=== PATIENT | female | born 1935 | race Caucasian/White ===

== ENCOUNTER → 2017-04-27 | Outpatient (CLI) | payer MEDICARE, OTHER ==
[~2017-04-27] MED LIST: CATHETER FLUSH 10 ML SYR IV PRN; CEFU500T PO; IOHEXOL 350 MG/ML 100 ML (OMNIPAQUE 350) VIAL IV ONE; NS 100 ML (IVPB) BAG IV ONE
[2017-04-27 11:26] LABS: CREATININE SERUM 1.09 MG/DL (0.60-1.30)
--- NOTE | 2017-04-27 12:06 | Diagnostic Imaging Report ---
PROCEDURE: CT chest with contrast only. TECHNIQUE: Multiple contiguous axial images were obtained through the chest after administration of intravenous contrast. INDICATION: Followup of bilateral pulmonary nodules. Comparison with 07/04/2016. FINDINGS: There is good opacification of the aorta and pulmonary arteries following IV contrast injection. Lungs well-aerated. There are small scattered sub-5 mm pulmonary nodules in the left lung which are stable. There is 5 mm nodule anteriorly in the right upper lobe which is also stable. No new nodules have developed. No infiltrates have developed. There is bilateral apical pleural scarring which is stable. Aorta is atherosclerotic without evidence of aneurysm. Pulmonary arteries appear normal. No mediastinal or hilar adenopathy is developed. There is no pleural effusion. The adrenal glands are not enlarged. No blastic or lytic bony lesions demonstrated. IMPRESSION: 1. Stable bilateral pulmonary nodules measuring 5 mm and smaller. 2. Stable bilateral apical pleural scarring. Dictated by: Dictated on workstation # [id number]
== END ==
LOC: RAD 10:43
PROVIDERS: ATTEND Internal Medicine
DX: R91.8 Other nonspecific abnormal finding of lung field (principal)
CPT/HCPCS: 36415; 71260; 82565; 84520

== ENCOUNTER → 2017-05-07 | Outpatient (CLI) | payer MEDICARE, OTHER ==
[~2017-05-07] MED LIST changes: -CATHETER FLUSH 10 ML SYR IV PRN; -IOHEXOL 350 MG/ML 100 ML (OMNIPAQUE 350) VIAL IV ONE; -NS 100 ML (IVPB) BAG IV ONE; +RT-ALBUTEROL SULF 2.5 MG/3 ML PRE-MIX VIAL IH ONE
== END ==
LOC: RT 14:59
PROVIDERS: ATTEND Internal Medicine
DX: R05 Cough (principal); F17.210 Nicotine dependence, cigarettes, uncomplicated
CPT/HCPCS: 94060; 94640; 94726; 94729

== ENCOUNTER → 2017-08-15 | Outpatient (CLI) | payer MEDICARE, OTHER ==
[~2017-08-15] MED LIST changes: -RT-ALBUTEROL SULF 2.5 MG/3 ML PRE-MIX VIAL IH ONE
--- NOTE | 2017-08-16 18:55 | Diagnostic Imaging Report ---
Bilateral screening mammogram 2D views with tomosynthesis The current study was also evaluated with a Computer Aided Detection (CAD) system. Indication: Screening. No current complaints stated on the questionnaire. COMPARISON: 08/14/2016 FINDINGS: The breasts are composed of scattered fibronodular densities. Occasional benign-appearing calcifications are seen. Allowing for technique and positional differences, no suspicious change is seen. IMPRESSION: No significant change. ACR BI-RADS Category 2: Benign findings. Result letter will be mailed to the patient. Note: At least 10% of breast cancer is not imaged by mammography. Dictated by: Dictated on workstation # [id number]
== END ==
LOC: RAD 09:51
PROVIDERS: ATTEND Internal Medicine
DX: Z12.31 Encounter for screening mammogram for malignant neoplasm of breast (principal)
CPT/HCPCS: 77067

== ENCOUNTER → 2018-05-16 | Outpatient (CLI) | payer MEDICARE, OTHER ==
--- NOTE | 2018-05-16 11:43 | Diagnostic Imaging Report ---
Indication: Age-related osteoporosis. Comparison is made with prior DEXA study from 02/21/2010. Bone mineral analysis of the lumbar spine and both hips was performed. Bone mineral density of the lumbar spine L2-L4 is 1.199 with a T score of 0.0. This compares with 1.029 and -1.3. Bone mineral density left femoral neck is 0.985 with T score -0.4. This compares with 0.82 and -1.1. Bone mineral density right femoral neck is 1.015 with T score -0.2. This compares to 0.928 and -0.8. Impression: Normal bone mineral density of the lumbar spine and bilateral femoral necks. Dictated by: Dictated on workstation # [id number]
== END ==
LOC: RAD 09:53
PROVIDERS: ATTEND Internal Medicine
DX: Z13.820 Encounter for screening for osteoporosis (principal); M81.0 Age-related osteoporosis without current pathological fracture
CPT/HCPCS: 77080

== ENCOUNTER → 2018-05-31 | Outpatient (CLI) | payer MEDICARE ==
--- NOTE | 2018-05-31 15:01 | Diagnostic Imaging Report ---
PROCEDURE: US Renal Bilateral. TECHNIQUE: Multiple real-time grayscale images were obtained over the kidneys in various projections bilaterally. INDICATION: Chronic kidney disease. FINDINGS: Right kidney measures 8.5 x 3.0 x 3.8 cm and the left kidney measures 9.0 x 3.5 x 3.7 cm. Cortical thickness and echogenicity is normal bilaterally. No calculi or hydronephrosis is seen. Urinary bladder is unremarkable although the bladder jets are not visualized. IMPRESSION: Unremarkable renal ultrasound. Dictated by: Dictated on workstation # [id number]
== END ==
LOC: RAD 14:03
PROVIDERS: ATTEND Internal Medicine
DX: N18.3 Chronic kidney disease, stage 3 (moderate) (principal)
CPT/HCPCS: 76770

== ENCOUNTER → 2018-08-19 | Outpatient (CLI) | payer MEDICARE ==
--- NOTE | 2018-08-19 10:54 | Diagnostic Imaging Report ---
INDICATION: Routine screening. Comparison is made with prior mammogram from 08/15/2017 and 08/14/2016. 2-D and 3-D bilateral screening mammography was performed with CAD. Both breasts are heterogeneously dense, limiting the sensitivity of mammography. Scattered benign-appearing parenchymal and vascular calcifications are seen bilaterally. No mass or malignant appearing microcalcifications are seen. The axilla are unremarkable. IMPRESSION: BI-RADS category 2 No mammographic features suspicious for malignancy are identified. ACR BI-RADS Category 2: Benign findings. Result letter will be mailed to the patient. Note: At least 10% of breast cancer is not imaged by mammography. Dictated by: Dictated on workstation # [id number]
== END ==
LOC: RAD 07:51
PROVIDERS: ATTEND Internal Medicine
DX: Z12.31 Encounter for screening mammogram for malignant neoplasm of breast (principal)
CPT/HCPCS: 77067

== ENCOUNTER → 2019-08-25 | Outpatient (CLI) | payer MEDICARE ==
--- NOTE | 2019-08-26 09:45 | Diagnostic Imaging Report ---
INDICATION: Routine screening. COMPARISON: 08/19/2018 and 08/15/2017. TECHNIQUE: 2D and 3D bilateral screening mammography was performed with CAD. FINDINGS: Both breasts remain heterogeneously dense, limiting the sensitivity of mammography. There are benign calcifications bilaterally. The overall parenchymal pattern appears to be stable. No mass or malignant appearing microcalcifications are seen. The axillae are unremarkable. IMPRESSION: No mammographic features suspicious for malignancy are identified. ACR BI-RADS Category 2: Benign findings. Result letter will be mailed to the patient. Note: At least 10% of breast cancer is not imaged by mammography. Dictated by: Dictated on workstation # [id number]
== END ==
LOC: RAD 15:28
PROVIDERS: ATTEND Nurse Practitioner Family
DX: Z12.31 Encounter for screening mammogram for malignant neoplasm of breast (principal)
CPT/HCPCS: 77067

== ENCOUNTER → 2020-01-29 | Outpatient (CLI) | payer MEDICARE ==
--- NOTE | 2020-01-29 13:06 | Diagnostic Imaging Report ---
INDICATION: Shortness of air COMPARISON: 06/08/2016 FINDINGS: Frontal and lateral radiograph views of the chest were obtained and show normal cardiac silhouette and pulmonary vasculature. Lungs show significant hyperinflation with flattening of the hemidiaphragms. Otherwise, lungs are clear. There is no focal consolidation, large effusion, nor pneumothorax. Osseous structures show no gross acute abnormalities. IMPRESSION: 1. No acute cardiopulmonary process. 2. Background COPD changes. Dictated by: Dictated on workstation # [id number]
== END ==
LOC: RAD 11:26
PROVIDERS: ATTEND Nurse Practitioner Family
DX: J44.9 Chronic obstructive pulmonary disease, unspecified (principal)
CPT/HCPCS: 71046

== ENCOUNTER → 2020-08-26 | Outpatient (CLI) | payer MEDICARE ==
--- NOTE | 2020-08-26 17:42 | Diagnostic Imaging Report ---
EXAM: Digital mammogram, bilateral screening. This study was compared to the prior exams of 08/25/2019, 08/19/2018 and 08/15/2017. At this time, there are no current complaints. The current study was also evaluated with a Computer Aided Detection (CAD) system. FINDINGS: The fibroglandular tissue in both breasts is heterogeneously dense. This does limit the sensitivity of this exam. Overall, there does not appear to have been any significant change when compared to the prior study. No primary or secondary sign of malignancy is noted. IMPRESSION: There is no radiographic evidence for malignancy. ACR category 1 ACR BI-RADS Category 1: Negative. Result letter will be mailed to the patient. Note: At least 10% of breast cancer is not imaged by mammography. Dictated by: Dictated on workstation # [id number]
== END ==
LOC: RAD 10:13
PROVIDERS: ATTEND Nurse Practitioner Family
DX: Z12.31 Encounter for screening mammogram for malignant neoplasm of breast (principal)
CPT/HCPCS: 77063; 77067

== ENCOUNTER → 2020-10-20 | Outpatient (CLI) | payer MEDICARE ==
--- NOTE | 2020-10-20 13:47 | Diagnostic Imaging Report ---
PROCEDURE: US Thyroid. TECHNIQUE: Multiple real-time grayscale images were obtained of the thyroid in various projections. INDICATION: Difficulty swallowing. FINDINGS: Right lobe of thyroid measures 5.6 x 1.3 x 1.7 cm and left lobe measures 3.4 x 1.1 x 0.9 cm. Isthmus is 2 mm in thickness. Both lobes of thyroid show some parenchymal heterogeneity. There is a nodule with calcifications in the lower pole of right lobe measuring 2.1 x 1.1 x 1.0 cm. No other nodules are identified. IMPRESSION: Dominant nodule in lower pole of right lobe of the thyroid with calcifications. Fine-needle aspiration would be recommended. Dictated by: Dictated on workstation # [id number]
--- NOTE | 2020-10-20 13:48 | Diagnostic Imaging Report ---
INDICATION: DIFFICULTY SWALLOWING CHRONIC COUGH COMPARISON: 01/29/2020 FINDINGS: Frontal and lateral views of the chest demonstrate normal heart size and pulmonary vascularity. The lungs are hyperinflated, but are otherwise clear. There are no signs of infiltrate, pleural effusions or pneumothoraces. The visualized osseous structures show no acute abnormalities. IMPRESSION: 1. No acute process. No signs of infiltrates, effusions or pneumothoraces. 2. Background moderate COPD changes. Dictated by: Dictated on workstation # [id number]
== END ==
LOC: RAD 10:48
PROVIDERS: ATTEND Nurse Practitioner Family
DX: J44.9 Chronic obstructive pulmonary disease, unspecified (principal); E04.1 Nontoxic single thyroid nodule
CPT/HCPCS: 71046; 76536

== ENCOUNTER → 2020-11-03 | Outpatient (CLI) | payer MEDICARE ==
[~2020-11-03] MED LIST changes: +LIDOCAINE 1% INJ 20 ML 20 ML VIAL INJ ONE
--- NOTE | 2020-11-03 13:57 | Diagnostic Imaging Report ---
Indication: Thyroid nodule. Patient presents for ultrasound-guided fine-needle aspiration and biopsy. Patient brought to the procedure room and placed on table in supine position. Ultrasound imaging of the right neck was performed to evaluate appropriate entry site. Right neck was then prepped and draped usual sterile fashion. Small amount 1% lidocaine was utilized for local anesthesia. A total of 4 passes were made into the dominant, solid nodule lower pole right lobe of the thyroid containing multiple calcifications utilizing 25-gauge needles and fine-needle aspiration technique. A single pass was made into the nodule with a Rotex needle and a Rotex biopsy was performed. Hemostasis was obtained using manual compression. Patient tolerated the procedure well and left the department in stable condition. IMPRESSION: Successful ultrasound-guided fine-needle aspiration and Rotex biopsy of the dominant solid nodule in the lower pole right lobe of the thyroid. Pathology results are currently pending. Dictated by: Dictated on workstation # [id number]
== END ==
LOC: RAD 10:48
PROVIDERS: ATTEND Internal Medicine
DX: E04.1 Nontoxic single thyroid nodule (principal)
CPT/HCPCS: 10005

== ENCOUNTER 2021-03-23 05:40 | Outpatient (CLI) | payer MEDICARE ==
[~2021-03-23] VITALS: Ht 160 cm; Wt 50.9 kg
[~2021-03-23 05:40] MED LIST changes: -LIDOCAINE 1% INJ 20 ML 20 ML VIAL INJ ONE
[2021-03-23] MEDS ORDERED: C,E,1CAP PO (14:44)
[2021-03-23] MEDS ORDERED: CALC-140 PO (14:44)
[2021-03-23] MEDS ORDERED: ASPI-999 PO (14:44)
[2021-03-23] MEDS ORDERED: SIMV20TA26 PO (14:44)
== END 2021-03-23 15:11 | disposition home or self-care (01) ==
LOC: PREOP 05:40
PROVIDERS: ATTEND Surgery
DX: Z01.818 Encounter for other preprocedural examination (principal)

== ENCOUNTER 2021-03-30 09:06 | Day surgery (SDC) | payer MEDICARE ==
[2021-03-30] VITALS (15 sets, daily range): BP systolic 106–171; BP diastolic 56–88
[~2021-03-30] VITALS: Ht 160 cm; Wt 50.9 kg
[~2021-03-30 09:06] MED LIST changes: +ASPI-999 PO; +C,E,1CAP PO; +CALC-140 PO; +SIMV20TA26 PO
[2021-03-30] MEDS ORDERED: NS IV 500 ML 500 ML ONE (09:26)
[2021-03-30] MEDS ORDERED: fentaNYL INJ 100 MCG/2 ML AMP IVP ONE (09:45)
[2021-03-30] MEDS ORDERED: NS IV 500 ML 500 ML IV PRN (09:45)
[2021-03-30] MEDS ORDERED: LIDOCAINE JELLY 2% 6 ML SYRINGE MM PRN (09:45)
[2021-03-30] MEDS ORDERED: MIDAZOLAM 5 MG/5 ML (VERSED) VIAL IV ONE (09:45)
--- NOTE | 2021-03-30 10:16 | Progress Note-Pre Operative ---
Pre-Operative Progress Note H&P Reviewed The H&P was reviewed, patient examined and no changes noted. Date Seen by Provider: Mar 30, 2021 Time Seen by Provider: 10:00 Date H&P Reviewed: Mar 30, 2021 Time H&P Reviewed: 10:00 Pre-Operative Diagnosis: screening, family hx colon ca BROOK JOHNSON MD Mar 30, 2021 10:16
--- NOTE | 2021-03-30 10:17 | Discharge Inst-Surgical ---
D/C Lap Instructions-ELIZABETH Follow Up Activity as tolerated High Fiber Diet 25g or more per day Avoid Alcohol, Caffeine, Spicy [place] and Acid foods. Drink 64 fluid oz or more of fluids per day. Symptoms to Report: Fever over 101 degree F, Nausea/Vomiting If any problems/questions: Contact your physician or go to Emergency Room BROOK JOHNSON MD Mar 30, 2021 10:17
[2021-03-30] MEDS ORDERED: ONDANSETRON 4 MG/2 ML (SDV) Z0FRAN IVP PRN (10:30)
[2021-03-30] MEDS ORDERED: fentaNYL INJ 100 MCG/2 ML AMP ONE (10:34)
--- NOTE | 2021-03-30 10:56 | Progress Note-Post Operative ---
Post-Operative Progess Note Surgeon (s)/Crap Game Box Person (s) Surgeon BROOK JOHNSON MD Crap Game Box Person: none Pre-Operative Diagnosis screening, family hx colon ca Post-Operative Diagnosis chronic stage 2 ext and int hemorrhoids, moderate sigmoid diverticulosis. Procedure & Operative Findings Date of Procedure 03/30/21 Procedure Performed/Findings colonoscopy Anesthesia Type cs Estimated Blood Loss Estimated blood loss (mL): minimal Specimens/Packing Specimens Removed none BROOK JOHNSON MD Mar 30, 2021 10:56
--- NOTE | 2021-03-30 14:31 | OPERATIVE REPORT ---
DATE OF SERVICE: 03/30/2021 ATTENDING PRIMARY CARE PHYSICIAN: Carolyn CRAVEN PREOPERATIVE DIAGNOSIS: Severe constipation. POSTOPERATIVE DIAGNOSES: Chronic stage II external and internal hemorrhoids, moderate sigmoid diverticulosis. PROCEDURE: Colonoscopy. SURGEON: Brook Meza MD ANESTHESIA: Conscious sedation. ESTIMATED BLOOD LOSS: Minimal. FINDINGS: Chronic stage II external and internal hemorrhoids, moderate sigmoid diverticulosis. DISPOSITION: The patient tolerated the procedure well. INDICATIONS: The patient is an 85-year-old female who has had a longstanding history of constipation. She was admitted December of this year for urinary incontinence and was also found to have a large amount of firm stool in the rectal vault. She was encouraged to proceed with stool softeners as well as increased water intake. She has not had a colonoscopy in many years. She states that her constipation is significant and may only have a bowel movement every 2 weeks. She does not report any red blood per rectum nor any dark tarry stools. She also does not report any family history of colon cancer. DESCRIPTION OF PROCEDURE: The patient was brought to the endoscopy suite, laid in the left lateral decubitus position. After adequate IV pain and sedative medications and conscious sedation anesthesia, a digital rectal examination was performed, which revealed chronic stage II external and internal hemorrhoids, not actively edematous nor inflamed and no bleeding. Normal sphincter tone was felt and there were no palpable masses. The endoscope was then intubated to the anus and rectum gently insufflated. The endoscope was then advanced to the valves of [place] of the rectum with no polyps or any neoplasms identified. Through the sigmoid colon, a moderate sigmoid diverticulosis identified. There were no mucosal inflammatory changes to indicate any active diverticulitis. The endoscope was then advanced to the remainder of the descending, transverse and ascending colon to the cecum, which were normal. There were no polyps or any neoplasms identified. The endoscope was then slowly withdrawn while taking a second look and suctioning of residual air with no additional findings. The patient tolerated the procedure well. Recommendation for her is that she needs to proceed with a dietary changes, which would encompass adding a fiber supplement slowly on a regular basis and increase to titrate to a point where she does have a soft bowel movement on a daily basis and to reaching her colon. Laxatives and stool softeners work by different mechanism, which the colon may get used to and this may be the case for her. There is a process and will take some time; however, overall this will prevent further complications of constipation including complications related to diverticulosis, polyps as well as the development of colon cancer. Her goal will be to take in at least 25 to 30 grams of fiber daily as well as significant amounts of water and again had at least one soft bowel movement on a daily basis with minimal form. Job ID: [id number] DocumentID: [id number] Dictated Date: 03/30/2021 10:51:58 Director Employee Communications Date: 03/30/2021 14:31:13 Dictated By: BROOK MEZA MD MTDD
== END 2021-03-30 12:00 | disposition home or self-care (01) ==
LOC: ENDO 09:06
PROVIDERS: ATTEND Surgery
DX: K57.30 Diverticulosis of large intestine without perforation or abscess without bleeding (principal); K64.1 Second degree hemorrhoids; K59.09 Other constipation; E78.5 Hyperlipidemia, unspecified; I10 Essential (primary) hypertension; Z79.899 Other long term (current) drug therapy; Z90.49 Acquired absence of other specified parts of digestive tract; Z79.82 Long term (current) use of aspirin; Z87.891 Personal history of nicotine dependence

== ENCOUNTER → 2021-05-03 | Outpatient (CLI) | payer MEDICARE ==
--- NOTE | 2021-05-03 16:22 | Diagnostic Imaging Report ---
PROCEDURE: US Thyroid. TECHNIQUE: Multiple real-time grayscale images were obtained of the thyroid in various projections. INDICATION: Thyroid nodule COMPARISON: 10/20/2020 Right and left lobes of the thyroid gland measure 4.6 x 1.2 x 1.6 cm and 4.0 x 1.0 x 1.3 cm, respectively. Similar to the previous study, there is an approximately 2.0 x 1.1 x 0.9 cm nodule in the inferior aspect of the right thyroid lobe. There is no associated hyperemia. There are probable internal calcifications. No other thyroid gland nodule is identified and there is no evidence of periglandular abnormality. IMPRESSION: Stable solid nodule in the lower pole of the right lobe of the thyroid gland. An additional 6 month follow-up examination would be useful to document ongoing stability. Dictated by: Dictated on workstation # [id number]
== END ==
LOC: RAD 11:00
PROVIDERS: ATTEND Otolaryngology Otolaryngology/Facial Plastic Surgery
DX: E04.1 Nontoxic single thyroid nodule (principal)
CPT/HCPCS: 76536

== ENCOUNTER → 2021-08-29 | Outpatient (CLI) | payer MEDICARE ==
--- NOTE | 2021-08-29 12:19 | Diagnostic Imaging Report ---
INDICATION: Routine screening. Comparison is made with prior mammogram from 08/26/2020 and 08/25/2019. 2-D and 3-D bilateral screening mammography was performed with CAD. Both breasts are heterogeneously dense, limiting the sensitivity of mammography. The parenchymal pattern is stable. No mass or malignant appearing microcalcifications are seen. There are occasional benign calcifications present. Axillae are unremarkable. IMPRESSION: No mammographic features suspicious for malignancy are identified. BI-RADS Category 2 ACR BI-RADS Category 2: Benign findings. Result letter will be mailed to the patient. Note: At least 10% of breast cancer is not imaged by mammography. Dictated by: Dictated on workstation # [id number]
== END ==
LOC: RAD 10:00
PROVIDERS: ATTEND Internal Medicine
DX: Z12.31 Encounter for screening mammogram for malignant neoplasm of breast (principal)
CPT/HCPCS: 77063; 77067

== ENCOUNTER → 2022-05-05 | Outpatient (CLI) | payer MEDICARE ==
--- NOTE | 2022-05-05 14:08 | Diagnostic Imaging Report ---
PROCEDURE: US Thyroid. TECHNIQUE: Multiple real-time grayscale images were obtained of the thyroid in various projections. INDICATION: Right thyroid nodule COMPARISON: 05/03/2021 FINDINGS: Right thyroid lobe: Size (cm): 4.5 x 1.2 x 1.6 Echotexture: Mildly heterogeneous Vascularity: Normal Nodules: In the inferior right thyroid there is a hypoechoic mostly solid nodule measuring up to 2 cm in size with internal macrocalcifications. No other nodules are seen. Isthmus: Size (cm): 0.2 Nodules: None Left thyroid lobe: Size (cm): 4.8 x 1.1 x 1.6 Echotexture: Normal Vascularity: Normal Nodules: None Impression: 1. Right thyroid nodule measuring 2 cm. This has been previously biopsied and is stable in size since the prior study. No new nodules are seen. Dictated by: Dictated on workstation # [id number]
== END ==
LOC: RAD 11:35
PROVIDERS: ATTEND Otolaryngology Otolaryngology/Facial Plastic Surgery
DX: E04.1 Nontoxic single thyroid nodule (principal)
CPT/HCPCS: 76536

== ENCOUNTER 2022-06-14 14:53 | Outpatient (RCR) | payer MEDICARE | END 2022-06-14 17:00 | disposition home or self-care (01) | PROVIDERS: ATTEND Otolaryngology Otolaryngology/Facial Plastic Surgery | DX: R42 Dizziness and giddiness (principal) ==

== ENCOUNTER → 2022-09-01 | Outpatient (CLI) | payer MEDICARE ==
--- NOTE | 2022-09-01 16:45 | Diagnostic Imaging Report ---
INDICATION: Routine screening. COMPARISON: Prior mammograms of 08/29/2021 and 08/26/2020. EXAMINATION: 2D and 3D bilateral screening mammography was performed with CAD. The current study was also evaluated with a Computer Aided Detection (CAD) system. FINDINGS: Scattered fibroglandular densities are identified, bilaterally. No mass or malignant-appearing microcalcifications are seen. There are benign calcifications. Axillae are unremarkable. IMPRESSION: No mammographic features suspicious for malignancy are identified. ACR BI-RADS Category 2: Benign findings. Result letter will be mailed to the patient. Note: At least 10% of breast cancer is not imaged by mammography. Dictated by: Dictated on workstation # [id number]
== END ==
LOC: RAD 14:38
PROVIDERS: ATTEND Nurse Practitioner Family
DX: Z12.31 Encounter for screening mammogram for malignant neoplasm of breast (principal)
CPT/HCPCS: 77063; 77067